=== PATIENT | female | born 1930 | race Caucasian/White ===

== ENCOUNTER 2018-01-10 11:31 | Observation (INO) | payer MEDICARE, OTHER ==
--- NOTE | 2018-01-10 12:26 | CT ---
CT BRAIN NONCONTRAST: HISTORY: 84-year-old female status post syncope. FINDINGS: There is no midline shift or any other mass effect. There is no evidence of acute intracranial hemor rhage, large cortical infarct, obstructive hydrocephalus, or extraaxial fluid collection. The calvar ium is intact. There is diffuse parenchymal volume loss. There are low attenuation areas in the whi te matter. These are nonspecific, but in a patient of this age, they are probably chronic ischemic w nesha matter changes due to microvascular atherosclerosis. IMPRESSION: 1. No acute intracranial findings. 2. Involutional changes and chronic ischemic white matter changes. jn [] POS: [facility]
[2018-01-10 13:27] LABS: #Eosinphils 0.1 thou/uL (0.0-0.7); #Lymphocytes 1.5 thou/uL (1.20-3.40); #Monocytes 0.4 thou/uL (0.11-0.59); #Neutrophils 2.7 thou/uL (1.40-6.50); %Basophils 0.7 % (0.0-1.0); %Lymphocytes 31.2 % (21.0-51.0); %Neutrophils 57.1 % (42.0-75.0); Hemoglobin 13.2 g/dL (12.0-16.0); Mean Corpuscular HGB CONC 32.9 g/dL (32.0-36.0); Mean Corpuscular Hemoglobin 30.6 pg (27.0-31.0); Mean Platelet Volume 7.6 fL (7.4-10.4); Platelet Count 175 thou/uL (130-400); RBC Distribution Width 12.4 % (11.5-14.5); White Blood Cell (WBC) Count 4.7 thou/uL (4.8-10.8)
[2018-01-10 13:51] LABS: ALT (SGPT) 8 U/L (8-55); AST (SGOT) 14 U/L (5-34); Albumin 3.7 g/dL (3.4-4.8); Alkaline Phosphatase 96 U/L (40-150); Anion Gap 13 mmol/L (10-20); BUN (Urea Nitrogen) 15 mg/dL (9.8-20.1); Bilirubin, Total 0.3 mg/dL (0.2-1.2); Calc. Creatinine Clearance 0 mL/min (70-130); Calcium 8.9 mg/dL (7.8-10.44); Carbon Dioxide 27 mmol/L (23-31); Chloride 98 mmol/L (98-107); Estimated GFR-MDRD 53; Globulin 2.8 g/dL (2.4-3.5); Glucose 94 mg/dL (83-110); Potassium 4.2 mmol/L (3.5-5.1); Protein, Total 6.5 g/dL (6.0-8.3); Sodium 134 mmol/L (136-145)
[2018-01-10 14:56] LABS: Bilirubin Negative (Negative); Blood, Urine Negative (Negative); Clarity CLEAR (Clear); Glucose, Urine (Dipstick) Negative (Negative); Leukocyte Trace (Negative); Nitrite Negative (Negative); Protein, Urine (Dipstick) Negative (Neg-Trace); Specific Gravity, Urine 1.011 (1.002-1.036); Urobilinogen 0.2 mg/dL (0.2-1.0); pH, Urine 6.5 (5.0-9.0)
[2018-01-10 14:59] LABS: Bacteria/HPF 4+ HPF (None Seen); Hyaline Casts/LPF 0-3 HYALINE CAST LPF (0-3 Hyaline); Pathc Cast-AUWi Flag 0.13 (0-2.49); RBC/HPF 0-3 HPF (0-3)
[2018-01-10] MEDS ORDERED: Ondansetron ODT 4 MG TAB SL PRN (16:57)
[2018-01-10] MEDS ORDERED: Ondansetron HCl/PF 4 MG/2 ML Vial IVP PRN (16:57)
[2018-01-10 17:06] VITALS: BMI 28.6
[2018-01-10] MEDS ORDERED: Acetaminophen 325 MG TAB PO PRN (19:09)
[2018-01-10] MEDS ORDERED: Acetaminophen 500 MG TAB PO PRN (19:17)
[2018-01-10] MEDS ORDERED: Famotidine 20 MG TAB PO SCH (21:00)
[2018-01-10] MEDS ORDERED: Atorvastatin Calcium 40 MG TAB PO SCH (21:00)
[2018-01-10] MEDS ORDERED: rOPINIRole HCl 2 MG TAB PO SCH (21:00)
--- NOTE | 2018-01-10 21:28 | PDOC.EVN ---
Event Note - Event Note Event Note: Attending H&P I personally evaluated the patient and discussed the management with Dr. Schulte. I have reviewed the written H&P and it is repeated by me. I agree with the History, Examination, Assessment and Plan documented above with any addition or exceptions noted below. Although an MRI alexandra be preferred, i think her cardiac pacer will leave CTA the only option for evaluating her for CVA/TIA. She is currently without any symptoms. Prolactin is pending.
[2018-01-10] MEDS: Lorazepam 0.5 MG TAB PO SCH (21:45)
--- NOTE | 2018-01-11 02:43 | HP-2 ---
CODE STATUS: DO NOT RESUSCITATE. This was discussed with the patient at bedside. PRIMARY CARE PHYSICIAN: Dr. Whitlock in [facility] ATTENDING: Dr. Raya. RESIDENT: Dr. Spence. CHIEF COMPLAINT: Syncope. HISTORY OF PRESENT ILLNESS: This is an 87-year-old female with past medical history of seizure disorder and mild diastolic congestive heart failure that presented secondary to a syncopal episode that occurred while sitting at [employer]. Family reports she was stooped over in the pew at [employer] drooling. They tried to awaken her, but she was unarousable for a period of approximately 90 seconds. When she awoke, she was very confused and not very responsive. This lasted for approximately 5-7 minutes post-episode. By the time she got to the emergency department, she was back to baseline. Patient does not recall the entirety of the event. There was no loss of bowel or bladder function. The family does report that past seizures have included staring into space, smacking lips and upper extremity contractures. They did not seem to think that this event was similar to past seizures. The patient has also had several reported TIAs per the family within the past several months intermittently. The patient has had a recent workup for gait instability, for which she had an echo and carotid artery evaluation done in November. Echo did have some mild diastolic dysfunction with preserved ejection fraction and carotid artery evaluation was normal. The patient does follow with a neurologist and is scheduled to have an MRI performed on Thursday. The patient was given aspirin in the emergency department. PAST MEDICAL HISTORY: 1. Seizure disorder with last seizure occurring 6-8 months ago. 2. Breast cancer, status post chemotherapy and right mastectomy. 3. Mild congestive heart failure with preserved ejection fraction. 4. Frequent falls. 5. Restless leg syndrome. 6. Gait instability, status post vestibular therapy. PAST SURGICAL HISTORY: 1. Cataract surgery. 2. Mastectomy to right breast. 3. Pacemaker for complete heart block in 07/2017. ALLERGIES: 1. PENICILLIN. 2. KEPPRA. 3. LAMISIL. 4. GABAPENTIN. MEDICATIONS: 1. Acetaminophen 1000 mg p.o. q.6 hours. 2. Anastrozole 1 mg p.o. daily. 3. Vitamin D3 of 1000 units p.o. daily. 4. Citalopram 10 mg p.o. daily. 5. Vitamin B12 of 5000 mcg p.o. daily. 6. Ativan 0.5 mg p.o. q.8 hours. 7. Omeprazole 20 mg p.o. daily. 8. Phenytoin sodium extended release 200 mg p.o. b.i.d. 9. Ropinirole 4 mg p.o. daily. 10. Zantac 150 mg p.o. daily. FAMILY HISTORY: Noncontributory. SOCIAL HISTORY: The patient denies tobacco, alcohol, or drug use. REVIEW OF SYSTEMS: A 12-point review of systems was performed, all were negative except as listed in the HPI and as indicated below. The patient does endorse history of fatigue, weakness which she attributes to her recent falls and gait instability. She has been undergoing vestibular therapy for which she has had to do a lot of physical activity that she is not used to. PHYSICAL EXAMINATION: VITAL SIGNS: Blood pressure 174/75, pulse 65, respiratory rate 16, T-max 98.8, pulse ox 99% on room air, current weight 80 kilograms. GENERAL: The patient is alert and oriented x3, no acute distress. Well- developed, well-nourished, appropriately interactive. HEENT: Pupils are equal, round, reactive to light and accommodation. Extraocular muscles are intact. Conjunctivae within normal limits. ENT: Nasal mucosa within normal limits. NECK: Supple. CARDIOVASCULAR: Regular rate and rhythm. No murmurs or gallops. Radial and pedal pulses 2+. RESPIRATORY: Normal effort, no retractions. LUNGS: Clear to auscultation bilaterally. SKIN: Warm and dry. No cyanosis or lesions. ABDOMEN: Soft and nontender to palpation. Bowel sounds positive in all 4 quadrants. No masses or distention. EXTREMITIES: No clubbing, cyanosis or edema in extremities. MUSCULOSKELETAL: Structure within normal, tone within normal limits. Muscle strength 5/5. NEUROLOGIC: No focal deficits. Cranial nerves II-XII intact. GCS 15. PSYCHIATRIC: Appropriate. LABORATORY DATA: CBC reveals a white blood cell count 4.7, hemoglobin 13.2, hematocrit 40.0, platelets 175. CMP reveals sodium 135, potassium 4.2, chloride 98, bicarbonate 27, BUN 15, creatinine 0.99, glucose 94, calcium 8.9, total protein 6.5, albumin 3.7, total bilirubin 0.3, AST 14, ALT 8, alkaline phosphatase 96. UA shows trace leukocyte esterase and 4+ bacteria. EKG shows a paced rhythm. Phenytoin level 17.3. Brain CT shows no acute intracranial findings. There are some involutional changes and chronic ischemic white matter changes. ASSESSMENT AND PLAN: This is an 87-year-old female with past medical history of seizure disorder and diastolic congestive heart failure, presents secondary to passing out. 1. Seizure versus syncopal episode versus transient ischemic attack. The patient was admitted to telemetry for observation. Prolactin is pending at this time. The patient did have a recent workup in November for gait instability at which point she had an echo that showed preserved ejection fraction with mild diastolic dysfunction as well as carotid artery evaluation which was normal. We will try to obtain these records from PCP and specialist. She also had a recent pacemaker in 07/2017 for complete heart block. We will have the pacemaker interrogated. We will obtain orthostatic vital signs and we will perform a CTA of the brain to evaluate for ischemia in the a.m. Patient has pacemaker and is thus not a good candidate for MRI. Phenytoin level was appropriate. We will put in for PT evaluation. Additionally, we will start aspirin and a statin. 2. History of breast cancer status post chemo and right mastectomy. The patient is currently taking anastrozole. We will continue this medication. 3. Seizure disorder. Patient is on phenytoin. Last seizure was 6-7 months ago. Phenytoin level was appropriate. Patient will need to follow closely with Neurology to evaluate for titration of this medication. 4. Restless leg syndrome. Continue home medications. 5. Gastroesophageal reflux disease. Continue home medications. 6. Anxiety/depression. Continue home medications. DISPOSITION AND LENGTH OF HOSPITAL STAY: Two days. Symptomatic medication will be provided. History of physical exam as well as management discussed with Dr. Celestine Raya. [facility]
[2018-01-11] MEDS: Lorazepam 0.5 MG TAB PO SCH ×2 (05:25→09:08)
--- NOTE | 2018-01-11 05:55 | PDOC.FM ---
- Subjective Subjective: Pt reports sleeping all night. Denies any acute events overnight. Denies any problems. Daughter present in the room. Main concern is that pt is still acting a little bit confused. Pt denies any other lightheadness, feeling of passing out. Denies any loss of urine. Denies any fever or chills. - Objective MAR Reviewed: Yes Vital Signs & Weight: Vital Signs (12 hours) Temp Pulse Resp BP BP BP BP 01/11/18 03:35 97.6 F 78 18 137/63 01/10/18 22:19 01/10/18 21:45 69 139/69 146/66 H 01/10/18 20:25 98.8 F 66 16 01/10/18 18:28 98.8 F 66 16 134/60 BP Pulse Ox 01/11/18 03:35 01/10/18 22:19 97 01/10/18 21:45 136/64 01/10/18 20:25 01/10/18 18:28 99 Weight Weight 80.422 kg I&O: 01/09/18 01/10/18 01/11/18 06:59 06:59 06:59 Intake Total 230 Output Total 350 Balance -120 Result Diagrams: 01/10/18 12:59 01/11/18 06:26 Radiology Reviewed by me: Yes (CTA pending today) <Vinnie Quiroz - Last Filed: 01/11/18 08:44> - Objective Vital Signs & Weight: Vital Signs (12 hours) Temp Pulse Pulse Pulse Resp BP BP 01/11/18 11:43 98.0 F 69 18 01/11/18 10:30 68 68 152/67 H 01/11/18 07:43 97.6 F 78 18 01/11/18 07:13 98.2 F 69 16 01/11/18 03:35 97.6 F 78 18 137/63 BP BP BP Pulse Ox 01/11/18 11:43 144/66 H 97 01/11/18 10:30 157/71 H 01/11/18 07:43 01/11/18 07:13 144/69 H 98 01/11/18 03:35 Weight Weight 80.422 kg I&O: 01/10/18 01/11/18 01/12/18 06:59 06:59 06:59 Intake Total 230 240 Output Total 1050 600 Balance -820 -360 Result Diagrams: 01/10/18 12:59 01/11/18 06:26 <Leon Salinas - Last Filed: 01/11/18 12:25> Phys Exam - Physical Examination HEENT: PERRLA, moist MMs Neck: no nodes, supple Respiratory: no wheezing, no rales, no rhonchi, clear to auscultation bilateral Cardiovascular: RRR, no significant murmur, no rub Gastrointestinal: soft, non-tender, no distention, positive bowel sounds Musculoskeletal: no edema, pulses present Neurological: non-focal, normal sensation, moves all 4 limbs Lymphatic: no nodes Psychiatric: normal affect, A&O x 3 Skin: no rash, normal turgor <Vinnie Quiroz - Last Filed: 01/11/18 08:44> Dx/Plan (1) Syncope Code(s): R55 - SYNCOPE AND COLLAPSE Status: Acute (2) Seizure disorder Code(s): G40.909 - EPILEPSY, UNSP, NOT INTRACTABLE, WITHOUT STATUS EPILEPTICUS Status: Acute (3) History of breast cancer Code(s): Z85.3 - PERSONAL HISTORY OF MALIGNANT NEOPLASM OF BREAST Status: Acute (4) Restless leg syndrome Status: Acute (5) Anxiety and depression Code(s): F41.8 - OTHER SPECIFIED ANXIETY DISORDERS Status: Acute (6) GERD (gastroesophageal reflux disease) Code(s): K21.9 - GASTRO-ESOPHAGEAL REFLUX DISEASE WITHOUT ESOPHAGITIS Status: Acute - Plan Plan: 1) Syncopal episode -Post-Ictal after seizure vs syncope vs TIA. According to history sounds like a post ictal state after seizure. -CT head negative yesterday. CTA head pending today. Can not get MRI due to pacemaker. -Initial prolactin not elevated. -Phenytoin level checked and normal. Will need to follow up with Neurology for medication adjustment -Orthostatics normal -PT consulted to help assess functional status. 2) Seizure Disorder -Phenytoin level appropriate on check. Will need follow up for possible adjustment of medications -Possibly had recent seizure. Prolactin level low on initial labs. 3)Hx of Breast cancer -Had chemo in past and masectomy. Is still on anastrazole at this time. Will continue -Trying to obtain records from PCP 4)Restless Leg Syndrome -continue home meds 5) GERD -Continue home meds 6)Anxiety Depression -continue home meds <Vinnie Quiroz - Last Filed: 01/11/18 08:44> Attending Addendum - Attending Addendum I personally evaluated the patient and discussed the management with Dr. Quiroz. I agree with the History, Examination, Assessment and Plan documented above with any addition or exceptions noted below. Patient doing well, at mentation baseline and no significant issues since presentation. Her CTA of the head and neck did not show acute abnormality. This was likely either a mild seizure with postictal state or an acute episode of encephalopathy. Anti epileptic drugs at therapeutic levels. We will repeat a UA with urine cx as infection could result in her symptoms. No focal neuro deficits to suggest TIA/CVA. Will interrogate pacemaker this morning and if all overall normal, discharge later today. <Leon Salinas - Last Filed: 01/11/18 12:25>
[2018-01-11 06:47] LABS: Anion Gap 9 mmol/L (10-20); BUN (Urea Nitrogen) 11 mg/dL (9.8-20.1); Calc. Creatinine Clearance 50 mL/min (70-130); Calcium 8.9 mg/dL (7.8-10.44); Carbon Dioxide 30 mmol/L (23-31); Chloride 104 mmol/L (98-107); Estimated GFR-MDRD 51; Glucose 95 mg/dL (83-110); Potassium 4.2 mmol/L (3.5-5.1); Sodium 139 mmol/L (136-145)
[2018-01-11] MEDS ORDERED: Citalopram 10 MG TAB PO SCH (09:00)
[2018-01-11] MEDS ORDERED: rOPINIRole HCl 2 MG TAB PO SCH (09:00)
[2018-01-11] MEDS ORDERED: Cyanocobalamin (Vitamin B-12) 1,000 MCG TAB PO SCH (09:00)
[2018-01-11] MEDS ORDERED: Anastrozole 1 MG TAB PO SCH (09:00)
--- NOTE | 2018-01-11 09:50 | CT ---
EXAM: CT ANGIOGRAM OF THE HEAD: HISTORY: Syncopal episode at [employer]. COMPARISON: None. TECHNIQUE: A noncontrast head CT is performed in the axial plane. CT angiogram of the head is performed in the axial plane. Sagittal and coronal 3-dimensional reformatted images are submitted for interpretation. FINDINGS: NONCOTNRAST HEAD CT: No hemorrhage or extraaxial hematoma. No midline shift. Basilar cisterns are patent. Age-appropria te atrophy. Cortical minaya-white matter differentiation is preserved. Ventricles and sulci are patent and symmetric. White matter hypodensities due to chronic small-vessel ischemic changes are noted. On the postcontrast images, no abnormal enhancement of the brain parenchyma. Cortical minaya-white mat ter differentiation is preserved. Calvarium is intact and there is adequate aeration of the sinuses and mastoid air cells. CT ANGIOGRAM: The distal cervical internal carotid arteries have symmetric enhancement and luminal diameter. Minim al atherosclerosis in both cavernous segments. Anterior Circulation: Appropriate enhancement and luminal diameter of both A1 and M1 segments. Proximal MCA branches and p roximal A2 segments have appropriate enhancement and luminal diameter. No evidence of aneurysm, or s ignificant stenosis. Posterior Circulation: The left vertebral artery is dominant. The right vertebral artery has a PICA termination. The basil ar is essentially supplied by the left vertebral artery. There is appropriate enhancement and lumina l diameter. The left and right P1 segments have appropriate enhancement and luminal diameter. No si gnificant stenosis or aneurysm of the posterior circulation. IMPRESSION: Unremarkable CT angiogram of the head. POS: [facility]
[2018-01-11 11:52] VITALS: TEMP 98
[2018-01-11 11:57] VITALS: BP 152/67
[2018-01-11 13:59] LABS: Bilirubin Negative (Negative); Blood, Urine Negative (Negative); Clarity CLEAR (Clear); Glucose, Urine (Dipstick) Negative (Negative); Leukocyte Trace (Negative); Nitrite Negative (Negative); Protein, Urine (Dipstick) Negative (Neg-Trace); Specific Gravity, Urine 1.022 (1.002-1.036); Urobilinogen 0.2 mg/dL (0.2-1.0); pH, Urine 6.5 (5.0-9.0)
[2018-01-11 14:01] LABS: Bacteria/HPF 2+ HPF (None Seen); Hyaline Casts/LPF 0-3 HYALINE CAST LPF (0-3 Hyaline); RBC/HPF 0-3 HPF (0-3); Squamous Epithelial 0-3 HPF (0-3); WBC/HPF 0-3 HPF (0-3)
--- NOTE | 2018-01-12 04:16 | DIS-2 ---
DATE OF ADMISSION: 01/10/2018 DATE OF DISCHARGE: 01/11/2018 ADMITTING ATTENDING: Celestine Raya M.D. DISCHARGE ATTENDING: Leon Salinas M.D. IMAGING: She had a brain CT which read: 1. No acute intracranial findings. 2. Involutional changes and chronic ischemic white matter changes on 01/10. On 01/11, she got a CT [facility] [place] [facility] [place] angio with contrast which read unremarkable CT angiogram of th e head. CONSULTS: None. DIAGNOSES: 1. Mild urinary tract infection. 2. Syncopal episode, likely secondary to postictal state from seizure. 3. Seizure disorder. 4. History of breast cancer. 5. Restless leg syndrome. 6. Anxiety and depression. DISCHARGE MEDICATIONS: 1. Macrobid 100 mg for a total of 7 days b.i.d. 2. Acetaminophen 1000 mg p.o. q.6 hours as needed. 3. Anastrozole 1 mg p.o. daily. 4. Vitamin D3 1000 units p.o. daily. 5. Citalopram 10 mg p.o. daily. 6. Cyanocobalamin vitamin B12 5000 mcg p.o. daily. 7. Ativan 0.5 mg p.o. q.8 hours as needed. 8. Omeprazole 20 mg p.o. daily. 9. Phenytoin 200 mg p.o. b.i.d. 10. Requip 4 mg p.o. daily. 11. Zantac 150 mg p.o. daily. HISTORY OF PRESENT ILLNESS AND BRIEF HOSPITAL COURSE: This is an 87-year-old female who came in afte r a syncopal episode while sitting in [employer]. Family reports that she was stooped over in the pew at [employer] drooling, they tried to awake her, was hard to awake for about 90 seconds, finally awoke her, she was confused, not very responsive, this episode lasted for approximately 7 minutes. By the time , she got to the ER department, she was little bit of baseline. Family reports then over the next co urse of 24 hours that she has been a kind of confused ever since then. Denied any loss of bowel or b ladder function. Did not say that she was shaking or have any other seizure symptoms. The family re ports she also had had some TIAs in the recent past and had some gait instability and a recent hospit al visit back in November, which she was recently getting rehab for. Next, when we got her, we checke d a prolactin which was normal at 1.55. Her white blood cell count was not elevated at 4.7. No othe r lab or abnormalities was noted. She got her initial UA on 01/10/2018 showed trace leukocyte estera se, 7-10 white blood cells, 4-6 squamous epithelial cells and 4+ urine bacteria. Due to the high num kusum of squamous epithelial cells, we kind of related that to a dirty catch. We then get the CT angio of [place] because she cannot get an MRI, she had a pacemaker in for complete heart block. A CT guero o was negative. We decided at this time maybe the urinary tract infection could also be a cause of h er confusion and kind of passing out, so we got a repeat UA which showed trace leukocyte esterase, 2+ bacteria, but only had 0-3 squamous epithelials cells. We decided to call this UTI, treated with Irving ivan and we will follow up with urine cultures as outpatient. We also had her pacemaker assessed b y the pacemaker interrogated. It was fine and working just fine, there were no problems with that, s o likely a pacemaker function was not the cause of this episode. She also could have had a seizure, does sound like maybe a postictal state from the seizure. She does have an appointment with a new [place]rolog[place] in [place] hometown next week. We decided this would be adequate. We checked her phenytoin le may, her phenytoin level was within normal range at 17.3. We decided to continue her home dose and l et the neurologist assess her decide if she needs to be changed on any more medications and we will f ollow up with her if the urine culture results, the Macrobid will cover for the urinary tract infecti on. At this time, we attribute this little episode maybe to possible urinary tract infection and ano ther seizure. DISPOSITION: Stable. DISCHARGE INSTRUCTIONS: 1. Location: Home. 2. Diet: Regular diet. 3. Activity: As tolerated. 4. Followup: We will need to follow up with her primary care doctor within 2 weeks for hospital fol lowup. We will follow up with neurologist in 1 week, has had originally scheduled appointment.
== END 2018-01-11 15:35 | disposition home or self-care (01) ==
LOC: ERS 11:31 → EDBD 11:31 → ERHOLD 14:41 → 2SW 16:56
PROVIDERS: ADMIT Family Medicine; ATTEND Family Medicine
DX: R55 Syncope and collapse (principal); N39.0 Urinary tract infection, site not specified; G40.909 Epilepsy, unspecified, not intractable, without status epilepticus; G25.81 Restless legs syndrome; K21.9 Gastro-esophageal reflux disease without esophagitis; F41.8 Other specified anxiety disorders; Z88.0 Allergy status to penicillin; Z88.8 Allergy status to other drugs, medicaments and biological substances; Z85.3 Personal history of malignant neoplasm of breast
CPT/HCPCS: 70450; 70496; 80048; 80053; 80185; 81003; 84146; 85025; 87077; 87086; 87186; 93005; 97139; 99285; G0378; G8978; G8979; G8980; 36415; 81015

== ENCOUNTER 2018-05-14 16:53 | Emergency (ER) | payer MEDICARE, OTHER ==
[2018-05-14 17:43] LABS: #Basophils 0.1 thou/uL (0.0-0.2); #Eosinphils 0.2 thou/uL (0.0-0.7); #Lymphocytes 2.6 thou/uL (1.20-3.40); #Monocytes 0.5 thou/uL (0.11-0.59); #Neutrophils 2.8 thou/uL (1.40-6.50); %Basophils 1.1 % (0.0-1.0); %Lymphocytes 41.7 % (21.0-51.0); %Monocytes 7.6 % (0.0-10.0); %Neutrophils 45.7 % (42.0-75.0); Hemoglobin 12.7 g/dL (12.0-16.0); Mean Corpuscular HGB CONC 33.3 g/dL (32.0-36.0); Mean Corpuscular Hemoglobin 28.9 pg (27.0-31.0); Mean Corpuscular Volume 86.8 fl (81.0-99.0); Mean Platelet Volume 7.2 fL (7.4-10.4); Platelet Count 200 thou/uL (130-400); RBC Distribution Width 13.9 % (11.5-14.5); Red Blood Cell (RBC) Count 4.39 mill/uL (4.20-5.40); White Blood Cell (WBC) Count 6.2 thou/uL (4.8-10.8)
[2018-05-14 18:02] LABS: ALT (SGPT) 12 U/L (8-55); AST (SGOT) 20 U/L (5-34); Albumin 3.8 g/dL (3.4-4.8); Alkaline Phosphatase 93 U/L (40-150); Anion Gap 11 mmol/L (10-20); BUN (Urea Nitrogen) 12 mg/dL (9.8-20.1); Bilirubin, Total 0.2 mg/dL (0.2-1.2); Calc. Creatinine Clearance 0 mL/min (70-130); Calcium 8.9 mg/dL (7.8-10.44); Carbon Dioxide 27 mmol/L (23-31); Chloride 105 mmol/L (98-107); Estimated GFR-MDRD 64; Globulin 3.1 g/dL (2.4-3.5); Glucose 97 mg/dL (83-110); Potassium 4.1 mmol/L (3.5-5.1); Protein, Total 6.9 g/dL (6.0-8.3); Sodium 139 mmol/L (136-145)
[2018-05-14 18:12] LABS: CKMB 1.1 ng/mL (0-6.6); Troponin I Less than 0.010 ng/mL (< 0.028)
--- NOTE | 2018-05-14 19:35 | CT ---
HEAD CT WITHOUT CONTRAST 05/14/18 COMPARISON: 01/10/18 HISTORY: Fall, trauma, pain. TECHNIQUE: Serial axial CT imaging is obtained at 5 mm intervals from vertex through skull base without contrast . FINDINGS: The visualized paranasal sinuses and mastoid air cells are well aerated. There is no displaced calvar ial fracture. There is no midline shift, mass effect, or intracranial hemorrhage. There is mild periventricular hyp odensity, suggesting small vessel disease. There is mild scalp swelling in the right supraorbital reg ion. IMPRESSION: Mild right supraorbital soft tissue swelling. No displaced calvarial fracture or evidence of intracra nial hemorrhage. POS: [facility]
== END 2018-05-14 19:11 | disposition home or self-care (01) ==
LOC: ERS 16:53
DX: S01.81XA Laceration without foreign body of other part of head, initial encounter (principal); K21.9 Gastro-esophageal reflux disease without esophagitis; G40.909 Epilepsy, unspecified, not intractable, without status epilepticus; F41.9 Anxiety disorder, unspecified; F32.9 Major depressive disorder, single episode, unspecified; I50.9 Heart failure, unspecified; G57.93 Unspecified mononeuropathy of bilateral lower limbs; Z85.3 Personal history of malignant neoplasm of breast; W18.30XA Fall on same level, unspecified, initial encounter; Y92.009 Unspecified place in unspecified non-institutional (private) residence as the place of occurrence of the external cause
CPT/HCPCS: 12001; 36415; 70450; 80053; 82553; 84484; 85025; 93005

== ENCOUNTER 2019-08-01 15:57 | Inpatient (IN) | payer MEDICARE, OTHER ==
[2019-08-01 16:48] LABS: #Eosinphils 0.1 thou/uL (0.0-0.7); #Lymphocytes 2.1 thou/uL (1.20-3.40); #Monocytes 0.5 thou/uL (0.11-0.59); %Basophils 0.6 % (0.0-1.0); %Eosinophils 1.4 % (0.0-10.0); %Lymphocytes 36.6 % (21.0-51.0); %Monocytes 8.7 % (0.0-10.0); %Neutrophils 52.8 % (42.0-75.0); Hemoglobin 11.1 g/dL (12.0-16.0); Mean Corpuscular HGB CONC 32.2 g/dL (32.0-36.0); Mean Corpuscular Hemoglobin 23.9 pg (27.0-31.0); Mean Corpuscular Volume 74.3 fL (78.0-98.0); Mean Platelet Volume 8.3 fL (7.4-10.4); Platelet Count 242 thou/uL (130-400); Red Blood Cell (RBC) Count 4.65 mill/uL (4.20-5.40); White Blood Cell (WBC) Count 5.7 thou/uL (4.8-10.8)
[2019-08-01] MEDS ORDERED: Ondansetron PF 4 MG/2 ML Vial ONE (16:54)
[2019-08-01 17:05] LABS: ALT (SGPT) 19 U/L (8-55); AST (SGOT) 21 U/L (5-34); Albumin 4.1 g/dL (3.4-4.8); Alkaline Phosphatase 102 U/L (40-150); Anion Gap 14 mmol/L (10-20); BUN (Urea Nitrogen) 16 mg/dL (9.8-20.1); Bilirubin, Total 0.2 mg/dL (0.2-1.2); Calc. Creatinine Clearance 0 mL/min (70-130); Carbon Dioxide 28 mmol/L (23-31); Chloride 86 mmol/L (98-107); Estimated GFR-MDRD 51; Globulin 2.6 g/dL (2.4-3.5); Glucose 117 mg/dL (83-110); Potassium 3.6 mmol/L (3.5-5.1); Protein, Total 6.7 g/dL (6.0-8.3); Sodium 124 mmol/L (136-145)
[2019-08-01 17:14] LABS: Elliptocytes SLIGHT = 2-5 cells (100X) (0-1/hpf); Hypochromia SLIGHT = 6-15 cells (100X) (0-5/hpf); MDiff Complete? YES; Microcytosis SLIGHT = 6-15 cells (100X) (0-5/hpf); Ovalocytes SLIGHT = 2-5 cells (100X) (0-1/hpf); Platelet Morphology Comment Appears Adequate; Polychromasia SLIGHT = 2-3 cells (100X) (0-2/hpf)
--- NOTE | 2019-08-01 17:18 | CT ---
CT BRAIN WITHOUT CONTRAST: History: Seizure. FINDINGS: Comparison made with exam 05-14-18. Changes of chronic small vessel ischemic disease in the periventricular white matter again seen. Vent ricular size is appropriate and basilar cisterns are patent. No evidence of acute infarct, hemorrhage , midline shift, or abnormal extraaxial fluid collections are seen. The bony calvarium is intact. The left paranasal sinuses and mastoid air cells are well aerated. IMPRESSION: No CT evidence of acute intracranial process. POS: [facility]
[2019-08-01 18:03] LABS: Bilirubin Negative (Negative); Blood, Urine Negative (Negative); Clarity Clear (Clear); Glucose, Urine (Dipstick) Normal (Negative); Leukocyte 75 Leu/uL (Negative); Nitrite 1+ (Negative); Protein, Urine (Dipstick) Negative (Neg-Trace); RBC/HPF 0-3 HPF (0-3); Squamous Epithelial 0-3 HPF (0-3); Urobilinogen Normal mg/dL (Less than 2)
[2019-08-01 18:04] LABS: Bacteria/HPF 1+ HPF (None Seen)
--- NOTE | 2019-08-01 18:06 | RAD ---
PORTABLE CHEST ONE VIEW: Date: 08-01-19 Time: 5:33 p.m. History: Seizure, dyspnea. FINDINGS/IMPRESSION: The heart size is normal. The aorta is tortuous. Left sided pacemaker device is seen. Elevation of th e right hemidiaphragm. No lobar consolidation, pneumothoraces, gricelda pulmonary edema or large effusio ns are seen. There are post op changes in the right axilla. Minimal atelectatic changes are seen in t he right lung base. POS: [facility]
[2019-08-01 23:20] VITALS: BMI 29.9
[2019-08-02] MEDS ORDERED: Lorazepam 2 MG/ML VIAL SLOW IVP PRN (02:09)
[2019-08-02] MEDS ORDERED: Prochlorperazine Maleate 5 MG TAB PO PRN (02:10)
[2019-08-02] MEDS ORDERED: diphenhydrAMINE 25 MG CAP PO PRN (02:10)
[2019-08-02] MEDS ORDERED: Acetaminophen 500 MG TAB PO PRN (02:10)
[2019-08-02] MEDS ORDERED: Ondansetron ODT 4 MG TAB PO PRN (02:13)
[2019-08-02] MEDS ORDERED: Ondansetron PF 4 MG/2 ML Vial IVP PRN (02:13)
[2019-08-02] MEDS ORDERED: Acetaminophen 650 MG Suppository PR PRN (02:13)
[2019-08-02] MEDS ORDERED: Acetaminophen 325 MG TAB PO PRN (02:13)
[2019-08-02 05:07] LABS: #Eosinphils 0.1 thou/uL (0.0-0.7); #Lymphocytes 2.9 thou/uL (1.20-3.40); #Monocytes 0.6 thou/uL (0.11-0.59); #Neutrophils 2.9 thou/uL (1.40-6.50); %Basophils 0.4 % (0.0-1.0); %Eosinophils 1.3 % (0.0-10.0); %Lymphocytes 44.7 % (21.0-51.0); %Monocytes 8.5 % (0.0-10.0); %Neutrophils 45.1 % (42.0-75.0); Hemoglobin 10.7 g/dL (12.0-16.0); Mean Corpuscular HGB CONC 32.8 g/dL (32.0-36.0); Mean Corpuscular Hemoglobin 24.3 pg (27.0-31.0); Mean Corpuscular Volume 74.1 fL (78.0-98.0); Mean Platelet Volume 8.1 fL (7.4-10.4); Platelet Count 226 thou/uL (130-400); RBC Distribution Width 15.2 % (11.5-14.5); Red Blood Cell (RBC) Count 4.41 mill/uL (4.20-5.40); White Blood Cell (WBC) Count 6.4 thou/uL (4.8-10.8)
[2019-08-02 05:28] LABS: Anion Gap 11 mmol/L (10-20); BUN (Urea Nitrogen) 16 mg/dL (9.8-20.1); Calc. Creatinine Clearance 54 mL/min (70-130); Carbon Dioxide 29 mmol/L (23-31); Chloride 87 mmol/L (98-107); Estimated GFR-MDRD 55; Glucose 93 mg/dL (83-110); Potassium 3.5 mmol/L (3.5-5.1); Sodium 123 mmol/L (136-145)
--- NOTE | 2019-08-02 07:21 | HP ---
PRIMARY CARE DOCTOR: The patient does not have a primary care doctor in the area, she recently moved. CODE STATUS: Full code. TIME OF EVALUATION: 02:00 a.m. CHIEF COMPLAINT: Seizure. HISTORY OF PRESENT ILLNESS: This is an 89-year-old female patient with past medical history of seizure disorder, congestive heart failure, GERD, breast cancer treated and has been in remission for 2 years, restless legs syndrome, came to the hospital after having an episode of seizures when she was outside at a birthday libertarian of her granddaughter, the patient was sitting and experienced a petit mal seizure. The episode lasted for 3 to 4 minutes and improved by itself, although as per daughter, this time, the episode lasted longer than the previous episodes. There were no clear triggers, no alleviating factors. The patient has been taking her medications on a daily basis, has not skipped medications. Symptoms were severe. REVIEW OF SYSTEMS: All other systems were reviewed and negative except for the findings mentioned above. CONSTITUTIONAL: The patient has fatigue that has been present for the past few weeks. No focal weakness. NEUROLOGIC: The patient has dysesthesias bilaterally in lower extremities. CARDIOVASCULAR: The patient also has positive bilateral leg edema and intolerance to exercise. MUSCULOSKELETAL: Back pain. GASTROINTESTINAL: The patient has some nausea associated with the seizure. PAST MEDICAL HISTORY: As mentioned in the HPI. PAST SURGICAL HISTORY: The patient has a history of mastectomy of the right breast due to breast cancer, pacemaker, appendectomy, hysterectomy, tonsillectomy, bilateral cataract surgery, and bilateral bunionectomy. PSYCHIATRIC HISTORY: Anxiety and depression. SOCIAL HISTORY: No alcohol. No drugs. No smoking history. FAMILY HISTORY: Reviewed and noncontributory to current presentation. KNOWN ALLERGIES: Gabapentin, Keppra, Lamictal, penicillin. REPORTED MEDICATIONS: 1. Omeprazole. 2. Phenytoin. 3. Lorazepam. 4. Zantac. 5. Anastrozole. 6. Ropinirole. PHYSICAL EXAMINATION: VITAL SIGNS: On presentation, blood pressure 128/66, heart rate 65, respiratory rate was 16, temperature 97.8, pain was 0/10, and oxygen saturation was 94% on room air. GENERAL APPEARANCE: The patient is alert, oriented, in no acute distress. HEENT: Eyes; normal conjunctivae. Moist oral mucosa. Anicteric. No JVD. RESPIRATORY: Bilateral air entry. No rales. No wheezing. Symmetric expansion. CARDIOVASCULAR: Normal rate, regular rhythm. No murmurs. No gallop. No edema. ABDOMEN: Soft. Normal bowel sounds. MUSCULOSKELETAL: Baseline range of motion and strength. SKIN: Warm and intact. No pallor. No rash. No redness. Capillary refill seems to be intact. NEUROLOGIC: No evidence of any new focal weakness. Cranial nerves seem to be intact. PSYCH: The patient is in good mood. No anxiety. Optimal judgment. DIAGNOSTIC FINDINGS: EKG was reviewed. The patient has ventricular paced rhythm with a rate of 64. Conduction is normal. No evidence of any acute ischemic event. Brain CT was done. No CT evidence of acute intracranial process. Chest x-ray was done. The heart size is normal. The aorta is tortuous. Left-sided pacemaker device is seen. Elevation of the right hemidiaphragm, lobar consolidation, pneumothorax, gricelda pulmonary edema are seen. There are postop changes in the right axilla, minimal atelectatic changes are seen in the right lung base. LABORATORY DATA: Labs were reviewed. The patient has white count 5.7, hemoglobin 11.1, MCV 74.3, platelet count 242. Chemistry; sodium 124, potassium 3.6, chloride 86, carbon dioxide 28, anion gap 14, BUN 16, creatinine 1.02, GFR 51, glucose 117, calcium 9.0, total bilirubin 0.2. LFTs were negative. Troponin was negative. Gxqrcik-fd-bmjkspcy ratio is 1.6, albumin 4.1. Urine was done, it was mildly positive with white count of 4 to 6, leukocyte esterase 75. Phenytoin 9.1, low. ASSESSMENT AND PLAN: The patient will be placed in the hospital with following medical problems: 1. Episode of acute breakthrough seizure. The patient has been taking her medication as prescribed by her doctor. The patient to be seen by Neuro for any further recommendation. The patient lives in the area and she is new, she does not have a neurologist yet. We will consult Neurology. We will follow recommendations. We will treat accordingly. We will keep Ativan at bedtime for any acute seizure episode. 2. Hyponatremia, sodium 124. We will monitor, we will treat accordingly. We will do electrolytes workup for further diagnosis and treatment. 3. History of congestive heart failure. The patient was gaining weight in the past few weeks and has recovered some with some Lasix p.o. We will continue diuresis, reconcile home medications, and we will adjust treatment as needed. 4. History of breast cancer, she finished treatment 2 years ago, has been in remission. 5. History of gastroesophageal reflux disease. Reconcile home medications. 6. History of restless legs syndrome. Reconcile home medications. 7. Neuropathy of bilateral lower extremities. Reconcile home medications. 8. Hyponatremia, 124, this seems to be chronic. We will send electrolytes and osmolality, may be dilutional from underlying congestive heart failure. We will continue diuresis; if the creatinine gets worse, might need Nephrology for assistance on the patient. 9. Deep venous thrombosis prophylaxis. Job ID: [id number]
[2019-08-02] MEDS: Docusate 100 MG CAP PO SCH (08:59)
[2019-08-02] MEDS: Aspirin 81 mg Enteric Coated Tablet PO SCH (08:59)
[2019-08-02] MEDS: Gabapentin 300 MG CAP PO SCH ×3 (09:00→20:24)
[2019-08-02] MEDS ORDERED: rOPINIRole HCl 2 MG TAB PO SCH (09:00)
[2019-08-02] MEDS: Cyanocobalamin (Vitamin B-12) 1,000 MCG TAB PO SCH (09:00)
[2019-08-02] MEDS ORDERED: Non-Formulary Item 1 EACH (Zantac 75 MG) PO SCH (09:00)
[2019-08-02] MEDS: Meclizine HCl 12.5 MG TAB PO SCH ×2 (09:01→20:24)
[2019-08-02] MEDS: Anastrozole 1 MG TAB PO SCH (09:03)
[2019-08-02] MEDS: Thiamine 100 MG TAB PO SCH (09:03)
[2019-08-02] MEDS: Mirtazapine 15 MG Soltab PO SCH (09:03)
[2019-08-02] MEDS: Lorazepam 0.5 MG TAB PO SCH (09:03)
[2019-08-02] MEDS: Enoxaparin Sodium 40 MG/0.4 ML SYRINGE SC SCH (09:05)
[2019-08-02 11:22] LABS: Creatinine, Urine 62.87 mg/dL (47-110); Potassium, Urine 33.9 mmol/L
[2019-08-02] MEDS ORDERED: Sodium Chloride 0.9% 1,000 ML IV SCH (12:15)
--- NOTE | 2019-08-02 12:18 | PDOC.HOSPP ---
- Subjective Encounter Date: 08/02/19 Encounter Time: 12:15 Subjective: f/u for hyponatremia, petit mal seizure with known seizure disorder on Dilantin. No new seizures reported per nursing. - Objective Vital Signs & Weight: Vital Signs (12 hours) Temp Pulse Resp BP Pulse Ox 08/02/19 11:26 98.5 F 70 18 128/59 L 98 08/02/19 07:49 98.4 F 83 16 143/65 H 98 08/02/19 04:00 98.6 F 78 16 118/55 L 96 Weight Weight 186 lb I&O: 08/01/19 08/02/19 08/03/19 06:59 06:59 06:59 Output Total 115 Balance -115 Result Diagrams: 08/02/19 04:46 08/02/19 04:45 Additional Labs: Laboratory Tests 08/01/19 08/01/19 08/01/19 16:35 16:35 16:35 Hgb 11.1 L MCV 74.3 L Sodium 124 L Serum Osmolality B-Natriuretic Peptide Urine Osmolality Phenytoin 9.1 L 08/01/19 08/02/19 08/02/19 16:35 04:46 10:35 Hgb MCV Sodium Serum Osmolality 263 L B-Natriuretic Peptide 48.1 Urine Osmolality 300 Phenytoin Radiology Reviewed by me: Yes (CT brain - no acute process) EKG Reviewed by me: Yes (Tele - SR) Hospitalist ROS - Medication Medications: Active Medications Generic Name Dose Route Start Last Admin Trade Name Freq PRN Reason Stop Dose Admin Anastrozole 1 mg 08/02/19 09:00 08/02/19 09:03 Arimidex PO 1 mg DAILY LISSETH Administration Aspirin 81 mg 08/02/19 09:00 08/02/19 08:59 Ecotrin PO 81 mg DAILY LISSETH Administration Cholecalciferol 1,000 units 08/02/19 09:00 08/02/19 08:59 Vitamin D3 PO 1,000 units DAILY LISSETH Administration Cyanocobalamin 1,000 mcg 08/02/19 09:00 08/02/19 09:00 Vitamin B-12 PO 1,000 mcg DAILY LISSETH Administration Docusate Sodium 200 mg 08/02/19 09:00 08/02/19 08:59 Colace PO 200 mg DAILY LISSETH Administration Enoxaparin Sodium 40 mg 08/02/19 09:00 08/02/19 09:05 Lovenox SC 40 mg 0900 LISSETH Administration Gabapentin 300 mg 08/02/19 09:00 08/02/19 09:00 Neurontin PO Not Given TID LISSETH Lorazepam 0.5 mg 08/02/19 09:00 08/02/19 09:03 Ativan PO 0.5 mg DAILY LISSETH Administration Meclizine HCl 12.5 mg 08/02/19 09:00 08/02/19 09:01 Antivert PO 12.5 mg BID LISSETH Administration Mirtazapine 15 mg 08/02/19 09:00 08/02/19 09:03 Remeron Soltab PO 15 mg DAILY LISSETH Administration Pantoprazole Sodium 40 mg 08/02/19 09:00 08/02/19 09:02 Protonix PO 40 mg DAILY LISSETH Administration Phenytoin Sodium 200 mg 08/02/19 09:00 08/02/19 09:03 Dilantin Er PO 200 mg BID LISSETH Administration Thiamine HCl 100 mg 08/02/19 09:00 08/02/19 09:03 Thiamine PO 100 mg DAILY LISSETH Administration - Exam General Appearance: NAD, awake alert Eye: PERRL, anicteric sclera ENT: normocephalic atraumatic, no oropharyngeal lesions Neck: supple, symmetric, no JVD, no thyromegaly, no lymphadenopathy Heart: RRR, no gallops, no rubs, normal peripheral pulses Respiratory: CTAB, no wheezes, no rales, no ronchi, normal chest expansion Gastrointestinal: soft, non-tender, non-distended, normal bowel sounds, no palpable masses Extremities: no cyanosis, 1+ LE edema Skin: normal turgor, no lesions Neurological: CN's grossly intact, no focal deficits, no new deficit Musculoskeletal: normal tone, normal strength Psychiatric: normal affect, A&O x 3 Hosp A/P (1) Hyponatremia Code(s): E87.1 - HYPO-OSMOLALITY AND HYPONATREMIA Status: Acute Plan: ? subacute, start IV NS @ 50ml/h, serial Na+ monitoring (2) Anxiety and depression Code(s): F41.8 - OTHER SPECIFIED ANXIETY DISORDERS Status: Chronic Plan: Stable currently, continue Dilantin 200mg BID, await Neurology consultation (3) Seizure disorder Code(s): G40.909 - EPILEPSY, UNSP, NOT INTRACTABLE, WITHOUT STATUS EPILEPTICUS Status: Acute (4) Restless leg syndrome Status: Chronic Plan: Continue home regimen and monitor clinically (5) Microcytic anemia Code(s): D50.9 - IRON DEFICIENCY ANEMIA, UNSPECIFIED Status: Chronic - Plan out of bed/ambulate, DVT proph w/SCDs Stable currently Continue Dilantin 200mg BID Await Neurology consult AM lab: BMP, H/H, Stool guaiac, Ferritin, Iron studies PM interrogation showing normal functioning device Likely home in 24h
[2019-08-02] MEDS: rOPINIRole HCl 2 MG TAB PO SCH (20:24)
--- NOTE | 2019-08-02 21:10 | CON ---
DATE OF CONSULTATION: 08/02/2019 CONSULTING PHYSICIAN: Hospitalist Service. IMPRESSION: 1. Recurrent seizure with mildly subtherapeutic Dilantin level of 9.1. 2. Mild hyponatremia, 124. PLAN: 1. Increase Dilantin to 500 mg per day. 2. Office followup in 2 weeks to recheck her level. HISTORY OF PRESENT ILLNESS: Ms. Cui is an 89-year-old female with a history of seizures. She has been on Dilantin since the onset. She recently moved into the area. She had a seizure prior to admission. She was a little slower than normal to get through the postictal state. Therefore, they brought her to the hospital. She was subsequently admitted for observation. She has not had any further seizure activity. Sodium level was a bit low. She reports being compliant with her medication. PAST HISTORY: CHF, breast cancer, seizures. FAMILY HISTORY: Noncontributory. ALLERGIES: PENICILLIN, LAMOTRIGINE, KEPPRA. MEDICATION LIST: Reviewed. REVIEW OF SYSTEMS: Ten-system review of systems is otherwise negative. PHYSICAL EXAMINATION: GENERAL: She is a bright, healthy-appearing elderly lady, in no distress. VITAL SIGNS: Have been stable. She is afebrile. HEENT: Pupils are equal. Conjunctivae are clear. Oropharynx is clear. NECK: Supple. EXTREMITIES: No cyanosis or edema. NEUROLOGIC: She is alert and appropriate. Her speech is fluent and clear. Cranial nerves are intact. Motor exam shows equal strength. There are no abnormal movements. Sensations intact to light touch. SUMMARY: This is an elderly lady with a history of seizures. She had a recurrent event with a Dilantin level of 9.1. I will increase her dose and follow up with her in the office. Job ID: [id number]
[2019-08-03 05:56] LABS: Hemoglobin 10.8 g/dL (12.0-16.0); Platelet Count 229 thou/uL (130-400); Reticulocyte Count 1.1 % (0.5-1.5)
[2019-08-03 06:33] LABS: Anion Gap 12 mmol/L (10-20); Calc. Creatinine Clearance 64 mL/min (70-130); Calcium 8.8 mg/dL (7.8-10.44); Carbon Dioxide 23 mmol/L (23-31); Chloride 89 mmol/L (98-107); Estimated GFR-MDRD 67; Glucose 85 mg/dL (83-110); Iron Binding Capacity, Total 378 mcg/dL (265-497); Potassium 3.4 mmol/L (3.5-5.1); Sodium 121 mmol/L (136-145)
[2019-08-03 06:34] LABS: Iron 24 ug/dL (50-170)
[2019-08-03 07:58] LABS: BUN (Urea Nitrogen) 12 mg/dL (9.8-20.1)
[2019-08-03] MEDS: Anastrozole 1 MG TAB PO SCH (08:49)
[2019-08-03] MEDS: Docusate 100 MG CAP PO SCH (08:49)
[2019-08-03] MEDS: Aspirin 81 mg Enteric Coated Tablet PO SCH (08:49)
[2019-08-03] MEDS: Thiamine 100 MG TAB PO SCH (08:50)
[2019-08-03] MEDS: Lorazepam 0.5 MG TAB PO SCH (08:50)
[2019-08-03] MEDS: Cyanocobalamin (Vitamin B-12) 1,000 MCG TAB PO SCH (08:50)
[2019-08-03] MEDS: Mirtazapine 15 MG Soltab PO SCH (08:51)
[2019-08-03] MEDS: Meclizine HCl 12.5 MG TAB PO SCH ×2 (08:51→21:04)
[2019-08-03] MEDS: Enoxaparin Sodium 40 MG/0.4 ML SYRINGE SC SCH (08:52)
--- NOTE | 2019-08-03 12:32 | CON ---
DATE OF CONSULTATION: HISTORY OF PRESENT ILLNESS: Ms. Cui is an 89-year-old white female, who was admitted for seizure. She was seen by Neurology. Recommendation is to maintain her on current antiseizure medication. We are being consulted for her hyponatremia. Unclear, if this is acute or chronic in nature. I did ask the daughter and she is unaware about this patient having any history of hyponatremia. My feeling is that this is most likely acute in nature. REVIEW OF SYSTEMS: No chest pain. No shortness of breath. Decreased appetite. Decreased energy level. No nausea. No vomiting. No diarrhea or constipation. No productive cough. No fever or chills. No headache. Status post syncopal episode from seizure disorder. No gross hematuria. No dysuria. No urinary frequency. MEDICATIONS: Currently on; 1. Arimidex 1 mg p.o. daily. 2. Aspirin 81 mg daily. 3. Vitamin D3 of 1000 international units daily. 4. Cyanocobalamin 1000 mcg daily. 5. Docusate 200 mg daily. 6. Lovenox 40 mg subcu daily. 7. Gabapentin 300 mg p.o. t.i.d. 8. Lorazepam 0.5 mg p.o. daily. 9. Meclizine 12.5 mg p.o. b.i.d. 10. Remeron 15 mg daily. 11. Phenytoin sodium 200 mg in the morning and 300 mg at bedtime. 12. Ropinirole 4 mg b.i.d. 13. Thiamine 200 mg p.o. daily. PAST MEDICAL HISTORY: 1. History of a seizure disorder. 2. Right breast cancer - status post chemotherapy. 3. Hypertension. 4. Status post CHF. 5. History of a bradycardia ? of coronary artery disease. PAST SURGICAL HISTORY: Status post pacemaker placement, status post lumpectomy, status post right breast mastectomy, status post right breast lumpectomy, status post hysterectomy, status post tonsillectomy, and status post appendectomy. PHYSICAL EXAMINATION: VITAL SIGNS: Blood pressure is noted at 121/56, heart rate 73, respiratory rate 16, temperature 98.1, and pulse ox 96%. GENERAL: Noted to be awake, alert, and comfortable, not in distress. SKIN: Adequate turgor. HEENT: She has a pinkish conjunctivae. Anicteric sclerae. NECK: No neck mass. No carotid bruits. No JVD. CHEST: No deformities. LUNGS: Clear breath sounds. No wheezing. No crackles. HEART: Normal sinus rhythm. No murmur. No gallops. No rubs. ABDOMEN: Globular, soft, and nontender. No masses. EXTREMITIES: No edema. No deformities, NEUROLOGIC: Moving all extremities. No tremors. No asterixis. No ataxia. LABORATORY DATA: Laboratories of August 03, 2019, white count 10.8. Sodium 121, potassium 3.4, chloride 89, carbon dioxide 23, BUN 12, creatinine 0.81, glucose 85, and calcium 8.8. TIBC 378, ferritin 10.5. Troponin I less than 0.010. August 02, 2019, serum sodium is 123 and August 01, 2019, serum sodium is 124. ASSESSMENT AND PLAN: Hyponatremia - this could be related from underlying syndrome of inappropriate antidiuretic hormone secretion. However, this diagnosis of exclusion. We have checked for TSH cortisols and I will be checking a uric acid. For the moment, agree with free water restriction. Depending on results of the study, we may need to start the patient on hypertonic saline 1.5% sodium chloride. I do not think she is in volume overload. Chest x-ray shows no evidence of congestive heart failure. Overall agree with current management. Job ID: [id number]
[2019-08-03] MEDS: rOPINIRole HCl 2 MG TAB PO SCH ×2 (14:14→21:04)
--- NOTE | 2019-08-03 16:28 | PDOC.HOSPP ---
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 Unresponsive initially to low-volume IVF's. Feels ok overall but remains chronically weak. - Objective Vital Signs & Weight: Vital Signs (12 hours) Temp Pulse Resp BP Pulse Ox 08/03/19 15:59 98 F 67 16 126/60 97 08/03/19 12:00 98.7 F 72 16 128/63 95 Weight Weight 189 lb 4.8 oz I&O: 08/02/19 08/03/19 08/04/19 06:59 06:59 06:59 Intake Total 620 100 Output Total 315 525 Balance 305 -425 Result Diagrams: 08/03/19 05:43 08/03/19 05:43 Additional Labs: Laboratory Tests 08/01/19 08/01/19 08/01/19 16:35 16:35 16:35 Hgb 11.1 L MCV 74.3 L Sodium 124 L Potassium 3.6 Serum Osmolality Uric Acid Iron TIBC Ferritin B-Natriuretic Peptide TSH 3rd Generation Cortisol Urine Osmolality Phenytoin 9.1 L 08/01/19 08/02/19 08/02/19 16:35 04:45 04:46 Hgb MCV Sodium 123 L Potassium 3.5 Serum Osmolality 263 L Uric Acid Iron TIBC Ferritin B-Natriuretic Peptide 48.1 TSH 3rd Generation Cortisol Urine Osmolality Phenytoin 08/02/19 08/03/19 08/03/19 10:35 05:43 05:43 Hgb MCV Sodium Potassium Serum Osmolality Uric Acid Iron 24 L TIBC 378 Ferritin 10.55 B-Natriuretic Peptide TSH 3rd Generation Cortisol Urine Osmolality 300 Phenytoin 08/03/19 08/03/19 08/03/19 05:43 05:43 05:43 Hgb MCV Sodium Potassium Serum Osmolality Uric Acid 4.3 Iron TIBC Ferritin B-Natriuretic Peptide TSH 3rd Generation 2.1014 Cortisol 7.00 Urine Osmolality Phenytoin EKG Reviewed by me: Yes (Tele - intermittent pacing) Hospitalist ROS - Medication Medications: Active Medications Generic Name Dose Route Start Last Admin Trade Name Freq PRN Reason Stop Dose Admin Anastrozole 1 mg 08/02/19 09:00 08/03/19 08:49 Arimidex PO 1 mg DAILY LISSETH Administration Aspirin 81 mg 08/02/19 09:00 08/03/19 08:49 Ecotrin PO 81 mg DAILY LISSETH Administration Cholecalciferol 1,000 units 08/02/19 09:00 08/03/19 08:50 Vitamin D3 PO 1,000 units DAILY LISSETH Administration Cyanocobalamin 1,000 mcg 08/02/19 09:00 08/03/19 08:50 Vitamin B-12 PO 1,000 mcg DAILY LISSETH Administration Docusate Sodium 200 mg 08/02/19 09:00 08/03/19 08:49 Colace PO 200 mg DAILY LISSETH Administration Gabapentin 300 mg 08/02/19 21:00 08/02/19 20:24 Neurontin PO 300 mg HS LISSETH Administration Lorazepam 0.5 mg 08/02/19 09:00 08/03/19 08:50 Ativan PO 0.5 mg DAILY LISSETH Administration Meclizine HCl 12.5 mg 08/02/19 09:00 08/03/19 08:51 Antivert PO 12.5 mg BID LISSETH Administration Mirtazapine 15 mg 08/02/19 09:00 08/03/19 08:51 Remeron Soltab PO 15 mg DAILY LISSETH Administration Phenytoin Sodium 200 mg 08/03/19 09:00 08/03/19 08:50 Dilantin Er PO 200 mg QAM LISSETH Administration Phenytoin Sodium 300 mg 08/02/19 21:00 08/02/19 20:24 Dilantin Er PO 300 mg HS LISSETH Administration Ropinirole HCl 4 mg 08/02/19 21:00 08/03/19 14:14 Requip PO 4 mg 1400,2100 LISSETH Administration Thiamine HCl 100 mg 08/02/19 09:00 08/03/19 08:50 Thiamine PO 100 mg DAILY LISSETH Administration - Exam General Appearance: NAD, awake alert Eye: PERRL, anicteric sclera ENT: normocephalic atraumatic, no oropharyngeal lesions Neck: supple, symmetric, no JVD, no thyromegaly, no lymphadenopathy Heart: RRR, no gallops, no rubs, normal peripheral pulses Respiratory: CTAB, no wheezes, no rales, no ronchi, normal chest expansion Gastrointestinal: soft, non-tender, non-distended, normal bowel sounds, no palpable masses Extremities: no cyanosis, no clubbing, no edema Skin: normal turgor, no lesions Neurological: CN's grossly intact, no focal deficits, no new deficit Musculoskeletal: normal tone Psychiatric: normal affect, normal behavior, A&O x 3 Hosp A/P (1) Hyponatremia Code(s): E87.1 - HYPO-OSMOLALITY AND HYPONATREMIA Status: Acute Plan: Likely SIADH, d/c Protonix, fluid restriction 1L/24h, serial Na+ monitoring (2) Anxiety and depression Code(s): F41.8 - OTHER SPECIFIED ANXIETY DISORDERS Status: Chronic (3) Seizure disorder Code(s): G40.909 - EPILEPSY, UNSP, NOT INTRACTABLE, WITHOUT STATUS EPILEPTICUS Status: Acute (4) Restless leg syndrome Status: Chronic (5) Microcytic anemia Code(s): D50.9 - IRON DEFICIENCY ANEMIA, UNSPECIFIED Status: Chronic Plan: Iron-deficiency component, start Feosol 325mg daily for home - Plan plan discussed w/ family, PT/OT, social worker school, DVT proph w/SCDs, dc IVF Stable currently Continue Dilantin 200mg BID Nephrology consult for hyponatremia AM lab: BMP PM interrogation showing normal functioning device Likely home in 24h
[2019-08-03] MEDS: Gabapentin 300 MG CAP PO SCH (21:03)
[2019-08-03] MEDS: Famotidine 20 MG TAB PO SCH (21:03)
[2019-08-03] MEDS: Sodium Chloride 1 GM TAB PO SCH (21:04)
[2019-08-04 00:07] VITALS: TEMP 98.5
[2019-08-04 05:32] LABS: #Basophils 0.1 thou/uL (0.0-0.2); #Eosinphils 0.1 thou/uL (0.0-0.7); #Lymphocytes 2.6 thou/uL (1.20-3.40); #Monocytes 0.6 thou/uL (0.11-0.59); %Basophils 0.8 % (0.0-1.0); %Eosinophils 1.8 % (0.0-10.0); %Lymphocytes 40.8 % (21.0-51.0); %Monocytes 9.8 % (0.0-10.0); %Neutrophils 46.8 % (42.0-75.0); Hemoglobin 10.7 g/dL (12.0-16.0); Mean Corpuscular Hemoglobin 24.8 pg (27.0-31.0); Mean Platelet Volume 8.2 fL (7.4-10.4); Platelet Count 222 thou/uL (130-400); Red Blood Cell (RBC) Count 4.34 mill/uL (4.20-5.40); White Blood Cell (WBC) Count 6.4 thou/uL (4.8-10.8)
[2019-08-04 05:45] LABS: Anion Gap 12 mmol/L (10-20); BUN (Urea Nitrogen) 12 mg/dL (9.8-20.1); Calc. Creatinine Clearance 65 mL/min (70-130); Calcium 9.1 mg/dL (7.8-10.44); Carbon Dioxide 30 mmol/L (23-31); Chloride 94 mmol/L (98-107); Estimated GFR-MDRD 67; Glucose 95 mg/dL (83-110); Potassium 3.6 mmol/L (3.5-5.1); Sodium 132 mmol/L (136-145)
[2019-08-04 08:28] VITALS: BP 123/58
[2019-08-04] MEDS: Sodium Chloride 1 GM TAB PO SCH (09:12)
[2019-08-04] MEDS: Docusate 100 MG CAP PO SCH (09:15)
[2019-08-04] MEDS: Lorazepam 0.5 MG TAB PO SCH (09:15)
[2019-08-04] MEDS: Mirtazapine 15 MG Soltab PO SCH (09:15)
[2019-08-04] MEDS: Cyanocobalamin (Vitamin B-12) 1,000 MCG TAB PO SCH (09:16)
[2019-08-04] MEDS: Famotidine 20 MG TAB PO SCH (09:16)
[2019-08-04] MEDS: Aspirin 81 mg Enteric Coated Tablet PO SCH (09:16)
[2019-08-04] MEDS: Meclizine HCl 12.5 MG TAB PO SCH (09:16)
[2019-08-04] MEDS: Anastrozole 1 MG TAB PO SCH (09:16)
[2019-08-04] MEDS: Thiamine 100 MG TAB PO SCH (09:16)
--- NOTE | 2019-08-04 10:42 | PRG ---
DATE OF SERVICE: 08/04/2019 SUBJECTIVE: Ms. Cui is an 89-year-old white female, who was seen for an acute hyponatremia. As per history, she has no history of hyponatremia in the past. Of interest, the patient had a seizure episode. 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 She was simply placed on a free water restriction. In addition, we have started her on simple sodium chloride tablet. This morning, she is mentating well. She is feeling better. Her serum sodium has dramatically improved almost spontaneously. OBJECTIVE: VITAL SIGNS: Blood pressure is 123/58, heart rate 68, respiratory rate 16, temperature 98.5, and pulse ox 97%. GENERAL: Noted to be awake, alert, comfortable, not in distress. SKIN: Adequate turgor. HEENT: She has a pinkish conjunctivae. Anicteric sclerae. NECK: No neck mass. No carotid bruits. No JVD. CHEST: No deformities. LUNGS: Clear breath sounds. No wheezing. No crackles. HEART: Normal sinus rhythm. No murmurs, gallops, or rubs. ABDOMEN: Globular, soft, nontender. No masses. EXTREMITIES: No edema. No deformities. MEDICATIONS: Medications of August 04, 2019, reviewed. LABORATORY DATA: Laboratories of August 04, 2019; sodium 132, potassium 3.6, chloride 94, carbon dioxide 30, BUN 12, creatinine 0.81, calcium 9.1. TSH 2.1. Cortisol 7. ASSESSMENT AND PLAN: 1. Acute hyponatremia-much improved-almost a spontaneous improvement. She has been placed on a strict free water restriction. In addition, she was placed on sodium chloride tablet at 1 g p.o. t.i.d. We will again recheck another basic metabolic in a.m. If this further improves, we can discontinue the sodium chloride tablet. As a matter of fact, my bias due to the dramatic improvement with the serum sodium is to discontinue the sodium chloride tablet. 2. Continue free water restriction. 3. Status post seizure disorder on phenytoin. Neurology is following. 4. Overall agree with current management. Job ID: [id number]
--- NOTE | 2019-08-05 05:46 | DIS ---
DATE OF ADMISSION: 08/01/2019 DATE OF DISCHARGE: 08/04/2019 DISCHARGE DIAGNOSES: 1. Hyponatremia, multifactorial including syndrome of inappropriate antidiuretic hormone, improved. 2. Seizure disorder. 3. Anxiety/depression. 4. Restless legs syndrome. 5. Microcytic anemia with iron deficiency component. CONSULTATIONS: 1. Dr. Brothers with Nephrology Service. 2. Dr. Lima with Neurology Service. PERTINENT LABORATORY AND X-RAY FINDINGS: Sodium ranged between 121 to 132, potassium ranged between 3.4 to 3.6, creatinine 0.81, uric acid level 4.3. Serum iron level 24, ferritin 10.55. Cortisol level 7. TSH 2.10. CBC showed a hemoglobin ranging between 10.7 to 11.1, MCV 75, phenytoin level 9.1 on 08/01/2019. CT of the brain without contrast dated 08/01/2019, showed no acute intracranial process. Portable chest x-ray dated 08/01/2019, showed no acute cardiopulmonary process. HOSPITAL COURSE: The patient was initially admitted after initially presenting with seizure-like activity in the context of known seizure disorder, on chronic Dilantin. The patient underwent extensive evaluation including neuroimaging showing no acute intracranial process. The patient was noted with a subtherapeutic phenytoin level at 9.1 and increased to 200 mg q.a.m. and 300 mg at bedtime at the direction of Neurology Service. The patient was also noted with concomitant hyponatremia with sodiums in the low 120 range. The patient was initially placed on low volume IV fluids, however this exacerbated the hyponatremia. At which point, the patient was placed on fluid restriction and given oral sodium. The patient's sodium level did correct appropriately with recommendations to continue regular diet with increased sodium intake on a long-term basis. The patient was also discontinued on proton pump inhibitors, as these can exacerbate hyponatremia. Overall, the patient did remain clinically stable during the hospital course, tolerating regular oral intake with stable vital signs. I have examined the patient at the time of discharge and discussed followup instructions. The patient verbalizes understanding and in agreement, ready for discharge on 08/04/2019. DISCHARGE MEDICATIONS: 1. Anastrozole 1 mg p.o. daily. 2. Enteric-coated aspirin 81 mg p.o. daily. 3. Vitamin D3 1000 units p.o. daily. 4. Vitamin B12 1000 mcg p.o. daily. 5. Benadryl 25 mg p.o. at bedtime p.r.n. 6. Colace 200 mg p.o. daily. 7. Gabapentin 300 mg p.o. at bedtime. 8. Ativan 0.5 mg p.o. daily. 9. Meclizine 12.5 mg p.o. b.i.d. 10. Mirtazapine 15 mg p.o. daily. 11. Compazine 10 mg p.o. q.6 hours p.r.n. nausea. 12. Requip 4 mg p.o. b.i.d. p.r.n. 13. Thiamine 100 mg p.o. daily. 14. Zantac 75 mg p.o. daily. 15. Feosol 325 mg p.o. daily. 16. Phenytoin 200 mg p.o. q.a.m. and 300 mg p.o. at bedtime. FOLLOWUP: The patient to establish a primary care provider in the [facility] area. The patient to follow up with Dr. Mohit Brothers with Nephrology Service. The patient to follow up with Dr. Gen Lima with Neurology Service. CONDITION ON DISCHARGE: Stable. ACTIVITY: Ad-melinda. Rolling walker for ambulation. DIET: Regular. CODE STATUS: Do not attempt resuscitation. DISPOSITION: Home on 08/04/2019. TIME SPENT: Total time preparing and coordinating discharge, 35 minutes. Job ID: [id number]
== END 2019-08-04 11:48 | disposition home or self-care (01) | DRG 645 ==
LOC: ERS 15:57 → OBSVTOIN 18:16 → 2SE 18:16
PROVIDERS: ADMIT Family Medicine; ATTEND Family Medicine
DX: E22.2 Syndrome of inappropriate secretion of antidiuretic hormone (principal); G40.909 Epilepsy, unspecified, not intractable, without status epilepticus; F41.9 Anxiety disorder, unspecified; F32.9 Major depressive disorder, single episode, unspecified; G25.81 Restless legs syndrome; D50.9 Iron deficiency anemia, unspecified; K21.9 Gastro-esophageal reflux disease without esophagitis; I11.0 Hypertensive heart disease with heart failure; I50.9 Heart failure, unspecified; G62.9 Polyneuropathy, unspecified; Z85.3 Personal history of malignant neoplasm of breast; Z88.0 Allergy status to penicillin; Z88.8 Allergy status to other drugs, medicaments and biological substances; Z98.42 Cataract extraction status, left eye; Z98.41 Cataract extraction status, right eye; Z90.49 Acquired absence of other specified parts of digestive tract; Z90.11 Acquired absence of right breast and nipple; Z95.0 Presence of cardiac pacemaker
CPT/HCPCS: 36415; 70450; 71045; 80048; 80053; 80185; 81003; 81015; 82436; 82533; 82570; 82728; 83540; 83550; 83880; 83930; 83935; 84133; 84300; 84443; 84484; 84550; 85014; 85018; 85025; 85046; 85049; 93005; 96374; J1650; J2405; J8597

== ENCOUNTER 2020-01-10 12:07 | Emergency (ER) | payer MEDICARE, OTHER ==
--- NOTE | 2020-01-10 13:08 | RAD ---
EXAM: 4 views of the right knee HISTORY: Knee pain after fall COMPARISON: None FINDINGS: No knee effusion is seen. There is no evidence of acute fracture or dislocation. Moderate t ricompartmental degenerative changes are seen. No soft tissue swelling is present. IMPRESSION: No evidence of acute osseous abnormality.
[2020-01-10] MEDS ORDERED: HYDROcodone/Acetaminophen 5/325 mg Tablet ONE (13:14)
== END 2020-01-10 14:05 | disposition home or self-care (01) ==
LOC: ERS 12:07
DX: S83.91XA Sprain of unspecified site of right knee, initial encounter (principal); K21.9 Gastro-esophageal reflux disease without esophagitis; G40.909 Epilepsy, unspecified, not intractable, without status epilepticus; G25.81 Restless legs syndrome; G62.9 Polyneuropathy, unspecified; I50.9 Heart failure, unspecified; F41.9 Anxiety disorder, unspecified; F32.9 Major depressive disorder, single episode, unspecified; Z79.899 Other long term (current) drug therapy; W19.XXXA Unspecified fall, initial encounter